=== PATIENT | female | born 1995 | race Caucasian/White ===

== ENCOUNTER 2025-01-15 18:12 | Emergency (ER) | payer SELFPAY ==
[~2025-01-15] VITALS: Ht 165.1 cm; Wt 59.0 kg
[2025-01-15 18:15] VITALS: BP 105/68; TEMP 37.1; O2SAT 100
[2025-01-15 18:18] VITALS: PULSE 89; RESP 14; O2SAT 100
== END 2025-01-15 19:40 | disposition left against medical advice (07) ==
LOC: ER 18:12
DX: H57.9 Unspecified disorder of eye and adnexa (principal)
CPT/HCPCS: 99281